=== PATIENT | male | born 1985 | race Two or more races ===

== ENCOUNTER 2024-10-19 09:51 | Outpatient (REF) | payer OTHER, SELFPAY ==
[2024-10-25 21:48] LABS: Polio 1 Titer 1:16; Polio 3 Titer 1:128
== END 2024-10-19 09:52 | disposition home or self-care (01) ==
LOC: HO.LAB 09:51
PROVIDERS: Visit Provider Student in an Organized Health Care Education/Training Program
DX: Z02.89 Encounter for other administrative examinations (principal)
CPT/HCPCS: 36415; 86382